=== PATIENT | female | born 1960 | race Caucasian/White ===

== ENCOUNTER 2020-04-13 14:50 | Observation (INO) ==
[2020-04-13] MEDS ORDERED: Isovue-370 500 ML BOTTLE IVP ONE (15:10)
[2020-04-13] MEDS ORDERED: Ketorolac 15 MG/ML VIAL IVP ONE (15:11)
[2020-04-13] MEDS ORDERED: 0.9 % Sodium Chloride 1,000 ML IVC ONE (15:11)
[2020-04-13] MEDS ORDERED: Metoclopramide 20 MG in 0.9 % Sodium Chloride 50 ML IVPB STA (15:13)
[2020-04-13 15:39] LABS: Basophils # 0.1 K/mcL (0.0-0.2); Basophils % 0.8 %; Eosinophils # 0.4 K/mcL (0.0-0.6); Eosinophils % 4.4 %; Hematocrit 44.1 % (35.3-44.9); Hemoglobin 14.1 g/dL (11.5-15.4); Immature Granulocytes % 0.2 % (0-4); Lymphocytes # 2.2 K/mcL (0.6-4.6); Lymphocytes % 24.3 %; Mean Corpuscular Volume 87.5 fL (83.0-100.0); Mean Platelet Volume 9.5 fL (9.4-12.4); Monocytes # 0.8 K/mcL (0.0-1.3); Monocytes % 8.9 %; Neutrophils # 5.7 K/mcL (1.6-8.9); Platelet Count 296 K/mcL (140-400); Red Blood Count 5.04 M/mcL (3.82-4.97); Red Cell Distribution Width 12.2 % (11.5-14.5); Segmented Neutrophils % 61.4 %; White Blood Count 9.2 K/mcL (4.3-11.1)
[2020-04-13 16:00] LABS: BUN/Creatinine Ratio 13 (6-26); Blood Urea Nitrogen 9 mg/dL (6-20); Calcium 9.6 mg/dL (8.6-10.3); Carbon Dioxide 23 mEq/L (23-29); Chloride 107 mEq/L (98-107); Glucose 97 mg/dL (70-105); Osmolality,Calculated 291 (280-300); Potassium 3.7 mEq/L (3.5-5.1); Sodium 141 mEq/L (136-145); Troponin I < 0.03 ng/mL (< 0.04); eGFR For African Americans > 60 (> 60); eGFR For Non-African Americans > 60 (> 60)
[2020-04-13] MEDS ORDERED: Naloxone 0.4 MG/ML INJ IVP PRN (18:36)
[2020-04-13] MEDS ORDERED: Ondansetron ODT 4 MG TAB.RAPDIS SL PRN (18:36)
[2020-04-13] MEDS: Aspirin Enteric Coated 81 MG Tablet PO SCH (20:02)
[2020-04-13] MEDS: Acetaminophen 325 MG TABLET PO PRN (20:03)
[2020-04-14 01:31] LABS: Alanine Aminotransferase 9 Units/L (7-52); Albumin 3.6 g/dL (3.5-5.7); Albumin/Globulin Ratio 1.6 (1.1-2.2); Alkaline Phosphatase 66 Units/L (34-104); Aspartate Amino Transferase 12 Units/L (13-39); BUN/Creatinine Ratio 16 (6-26); Bilirubin,Total 0.6 mg/dL (0.3-1.0); Blood Urea Nitrogen 11 mg/dL (6-20); Calcium 8.6 mg/dL (8.6-10.3); Carbon Dioxide 24 mEq/L (23-29); Chloride 109 mEq/L (98-107); Chol/HDL Ratio 4.6 (0-4.9); Cholesterol 229 mg/dL (< 200); Globulin 2.3 g/dL (2.4-3.5); Glucose 104 mg/dL (70-105); HDL Cholesterol 50 mg/dL (40-59); LDL Cholesterol,Calculated 141 mg/dL (< 100); Osmolality,Calculated 294 (280-300); Potassium 3.6 mEq/L (3.5-5.1); Sodium 142 mEq/L (136-145); Total Protein 5.9 g/dL (6.4-8.9); Triglycerides 189 mg/dL (< 150); eGFR For African Americans > 60 (> 60); eGFR For Non-African Americans > 60 (> 60)
[2020-04-14] MEDS: Acetaminophen 325 MG TABLET PO PRN (06:02)
[2020-04-14] MEDS: Aspirin Enteric Coated 81 MG Tablet PO SCH (07:29)
[2020-04-14 07:47] LABS: Estimated Average Glucose 126 mg/dl
[2020-04-14] MEDS ORDERED: Budesonide/Formoterol 160/4.5 1 PUFF INH IH SCH (10:00)
[2020-04-14 15:06] VITALS: BP 111/69
[2020-04-14] MEDS ORDERED: *HR* Heparin 5,000 UNIT/ML VIAL SQ SCH (18:00)
== END 2020-04-14 17:26 | disposition home or self-care (01) ==
LOC: EMEROOARM 14:50 → 3BNU 14:50 → SUATTDRO 18:13 → 3BNU 18:46
PROVIDERS: ADMIT Internal Medicine; ATTEND General Practice

== ENCOUNTER 2020-04-17 01:07 | Observation (INO) ==
[2020-04-17] MEDS ORDERED: Naloxone 0.4 MG/ML INJ IVP PRN (03:10)
[2020-04-17 05:00] LABS: Basophils # 0.1 K/mcL (0.0-0.2); Basophils % 0.7 %; Eosinophils # 0.4 K/mcL (0.0-0.6); Eosinophils % 4.2 %; Hemoglobin 13.1 g/dL (11.5-15.4); Immature Granulocytes % 0.2 % (0-4); Lymphocytes # 2.2 K/mcL (0.6-4.6); Lymphocytes % 22.5 %; Mean Corpuscular Hemoglobin 27.9 pg (28.0-33.3); Mean Corpuscular Volume 87.4 fL (83.0-100.0); Mean Platelet Volume 9.5 fL (9.4-12.4); Monocytes # 0.8 K/mcL (0.0-1.3); Monocytes % 8.3 %; Neutrophils # 6.2 K/mcL (1.6-8.9); Platelet Count 294 K/mcL (140-400); Red Blood Count 4.69 M/mcL (3.82-4.97); Red Cell Distribution Width 12.3 % (11.5-14.5); Segmented Neutrophils % 64.1 %; White Blood Count 9.7 K/mcL (4.3-11.1)
[2020-04-17 05:22] LABS: BUN/Creatinine Ratio 13 (6-26); Blood Urea Nitrogen 8 mg/dL (6-20); Calcium 9.7 mg/dL (8.6-10.3); Carbon Dioxide 24 mEq/L (23-29); Chloride 108 mEq/L (98-107); Glucose 114 mg/dL (70-105); Osmolality,Calculated 293 (280-300); Potassium 3.6 mEq/L (3.5-5.1); Sodium 142 mEq/L (136-145); eGFR For African Americans > 60 (> 60); eGFR For Non-African Americans > 60 (> 60)
[2020-04-17] MEDS ORDERED: Aspirin Enteric Coated 81 MG Tablet PO SCH (09:00)
[2020-04-17] MEDS ORDERED: Budesonide/Formoterol 160/4.5 1 PUFF INH IH SCH (10:00)
[2020-04-17] MEDS ORDERED: Acetaminophen 325 MG TABLET PO ONE (10:38)
[2020-04-17 10:53] VITALS: BP 107/67
== END 2020-04-17 13:15 | disposition home or self-care (01) ==
LOC: 3NENU
PROVIDERS: ADMIT Student in an Organized Health Care Education/Training Program; ATTEND Student in an Organized Health Care Education/Training Program